=== PATIENT | female | born 1965 | race Caucasian/White ===

== ENCOUNTER 2016-08-13 12:37 | Emergency (ER) | payer OTHER ==
[~2016-08-13] VITALS: Ht 170.2 cm; Wt 98.9 kg
--- NOTE | ~2016-08-13 | EKG ---
[address] [place] [address] ELECTROCARDIOGRAM REPORT Name: LINDA RODRIGUEZ RAFAL Room #: [id number] Admission: 08/13/16 Attend Phys: Discharge: 08/13/16 Date of : 65 Report #: [id number] THIS REPORT FOR: //name// [facility] ED Test Date: 2016-08-13 Test Time: 12:38:02 Pat Name: LINDA RODRIGUEZ Department: Room: Gender: F Automation Design Engineer: TANIA : [id number] Requested By: Julius Juarez Order Number: [id number] MD: Jonathan Trivedi Measurements Intervals [place] Rate: 52 P: 73 KS: 204 QRS: 83 QRSD: 109 T: 259 QT: 472 QTc: 439 Interpretive Statements Sinus rhythm Borderline prolonged KS interval Probable LVH with secondary repol abnrm Anterior Q waves, possibly due to LVH Repol abnrm, global ischemia, diffuse leads Baseline wander in lead(s) V5 Compared to ECG 10/25/2000 01:50:51 Left ventricular hypertrophy now present ST and T wave abnormality is now present Electronically Signed On 08-15-2016 14:51:48 CDT by Jonathan Trivedi [email or web address] <ELECTRONICALLY SIGNED> By: Jonathan Trivedi MD, FAC 08/15/16 1451 1238 1238 Jonathan Trivedi MD, [facility] /EPI
[~2016-08-13 12:37] MED LIST: FIORICET 50-321 EACH PO; HYDROCHLOROTHIA50 MG PO; IBUPROFEN 800800 MG PO; KEFLEX500 MG PO; NORCO 5-325 TA1 EACH PO; NORCO 7.5-3251 EACH PO; PROZAC 20 MG20 M1 PO; ZESTRIL20 MG PO; [UNRECOGNIZED DRUG - OTHER]; [UNRECOGNIZED DRUG - OTHER] IM
[2016-08-13 13:08] LABS: ABSOLUTE NEUTROPHILS 4.1 thou/uL (1.4-8.2); BASOPHILS 1.1 % (0.0-2.0); EOSINOPHILS 2.4 % (0.0-3.0); HEMATOCRIT 40.4 % (37.0-47.0); HEMOGLOBIN 13.9 gm/dL (12.0-15.0); LYMPHOCYTES 16.1 % (24.0-44.0); MANUAL DIFF NO; MCH 31.6 pg (26.0-34.0); MCHC 34.4 g/dL (28.0-37.0); MCV 91.8 fL (80.0-100.0); PLATELET COUNT 262 thou/uL (150-400); POLYS 75.4 % (36.0-66.0); RDW 13.3 % (10.5-14.5); WBC 5.5 thou/uL (4.0-11.0)
[2016-08-13 13:15] LABS: ANION GAP 13 mmol/L (7-16); BUN 25 mg/dL (7-18); CALCIUM 8.9 mg/dL (8.5-10.1); CHLORIDE 104 mmol/L (98-107); CO2 22 mmol/L (21-32); CREATININE 1.7 mg/dL (0.6-1.0); GLUCOSE 105 mg/dL (74-106); POTASSIUM 3.5 mmol/L (3.5-5.1); SODIUM 139 mmol/L (136-145)
[2016-08-13 13:27] LABS: NT-PRO BRAIN NAT PEPTIDE 1368 pg/mL (<300); TROPONIN-I < 0.04 ng/mL (<0.04-0.07)
[2016-08-13] MEDS ORDERED: LIPITOR40 MG PO (15:19)
[2016-08-13] MEDS ORDERED: CLONIDINE HCL0.3 M3 PO (15:20)
[2016-08-13] MEDS ORDERED: COREG25 MG PO (15:20)
[2016-08-13] MEDS ORDERED: HYDRALAZINE 2525 MG PO (15:20)
[2016-08-13] MEDS ORDERED: ALDACTONE50 MG PO (15:21)
[2016-08-13] MEDS ORDERED: TOPAMAX50 MG PO (15:21)
[2016-08-13] MEDS ORDERED: CARDURA4 MG PO (15:23)
[2016-08-13] MEDS ORDERED: ALPRAZOLAM ER1 MG PO (15:23)
[2016-08-13] MEDS ORDERED: PAXIL10 MG PO (15:23)
[2016-08-13] MEDS ORDERED: TRAZODONE HCL50 MG PO (15:23)
[2016-08-13] MEDS ORDERED: AMLODIPINE BESY10 MG PO (15:23)
[2016-08-13 16:03] VITALS: BP 164/78
== END 2016-08-13 16:14 ==
LOC: ER 12:37
PROVIDERS: Emergency Medicine
DX: R53.83 Other fatigue (principal); R42 Dizziness and giddiness; I10 Essential (primary) hypertension; F17.210 Nicotine dependence, cigarettes, uncomplicated; Z86.73 Personal history of transient ischemic attack (TIA), and cerebral infarction without residual deficits; Z88.5 Allergy status to narcotic agent